=== PATIENT | female | born 1930 | race African-American/Black ===

== ENCOUNTER 2018-07-20 06:37 | Emergency (ER) | payer OTHER ==
[~2018-07-20] VITALS: Ht 172.7 cm; Wt 58.0 kg
[~2018-07-20 06:37] MED LIST: AMLO5TAB4 PO; ASCO-339 PO; BRIM15DR2 EACHEYE; CETI10CA8 PO; CITRACAL + D3 PO; CLOTRIMAZOLE TOP; DOCU250C69 PO; FURO40TA5 PO; GLYB5TAB7 PO; LATA2.5D2 EACHEYE; LEVO50TA8 PO; METF-414 PO; metolazone PO
[2018-07-20 09:09] VITALS: BP 141/57
== END 2018-07-20 09:10 | disposition home or self-care (01) ==
LOC: ER 06:37
DX: B02.9 Zoster without complications (principal); I10 Essential (primary) hypertension
CPT/HCPCS: 99283

== ENCOUNTER 2020-05-21 15:05 | Inpatient (IN) | payer OTHER ==
[~2020-05-21] VITALS: Ht 172.7 cm; Wt 66.2 kg
[~2020-05-21 15:05] MED LIST changes: +LATA2.5D14 EACHEYE; -LATA2.5D2 EACHEYE
[2020-05-21 15:23] LABS: BASOPHILS % 1.3 % (0.0-2.0); EOSINOPHILS % 1.1 % (0.0-5.0); HEMATOCRIT. 35.1 % (36.0-48.0); HEMOGLOBIN. 11.4 g/dL (12.0-16.0); MEAN CORPUSCULAR HEMOGLOBIN 29.8 pg (28.0-32.0); MEAN CORPUSCULAR VOLUME 91.5 fL (81.0-99.0); MEAN PLATELET VOLUME 8.6 fl (7.4-10.4); MONOCYTES % 10.2 % (2.0-8.0); NEUTROPHILS % 66.4 % (40.0-76.0); PLATELET 226 x1000/uL (130-400); RED BLOOD CELL COUNT 3.84 mill/uL (4.2-5.4); RED CELL DISTRIBUTION WIDTH 14.5 % (11.6-14.6)
[2020-05-21 15:30] LABS: CHLORIDE 108 mEq/L (98-107)
[2020-05-21 15:32] LABS: INR 1.1; PROTHROMBIN TIME 11.6 sec (9.6-11.0)
[2020-05-21 15:35] LABS: ETHANOL BLOOD < 10 mg/dL
[2020-05-21 15:38] LABS: LDL CHOLESTEROL 88 mg/dL (5-100)
[2020-05-21 15:39] LABS: CREATINE KINASE 55 IU/L (26-192)
[2020-05-21] MEDS ORDERED: ALTEPLASE IV STA (15:52)
[2020-05-21] MEDS ORDERED: ALTEPLASE 100MG/VIAL IV ONE (16:15)
[2020-05-21] MEDS ORDERED: CONTAINER EMPTY IV ONE (16:20)
[2020-05-21] MEDS ORDERED: ALTEPLASE IV ONE (16:20)
[2020-05-21] MEDS ORDERED: *NO ASPIRIN X 24 HOURS XX SCH ×2 (16:30)
[2020-05-21 17:52] LABS: CLARITY URINE CLEAR (CLEAR); COLOR URINE YELLOW (YELLOW); KETONES URINE NEGATIVE (NEGATIVE); LEUKOCYTE ESTERASE URINE TRACE (NEGATIVE); NITRITE URINE NEGATIVE (NEGATIVE); OCCULT BLOOD URINE TRACE (NEGATIVE); PH URINE 6.5 (4.5-8.0); PROTEIN URINE NEGATIVE (NEGATIVE); SPECIFIC GRAVITY URINE 1.034 (1.005-1.030)
[2020-05-21 18:03] LABS: *COCAINE SCREEN URINE NEGATIVE (NEGATIVE); METHADONE URINE SCREEN NEGATIVE (NEGATIVE); OPIATES URINE SCREEN NEGATIVE (NEGATIVE)
[2020-05-21 18:04] LABS: *AMPHETAMINES SCREEN URINE NEGATIVE (NEGATIVE); *BARBITURATES SCREEN URINE NEGATIVE (NEGATIVE); *BENZODIAZEPINES SCREEN URINE NEGATIVE (NEGATIVE); CANNABINOID URINE SCREEN NEGATIVE (NEGATIVE); PHENCYCLIDINE URINE SCREEN NEGATIVE (NEGATIVE)
[2020-05-22] MEDS: LATANOPROST 0.005% OPHTH DROPS 2.5ML EACHEYE SCH (22:32)
[2020-05-23] VITALS (12 sets, daily range): BP systolic 128–177; BP diastolic 61–87
[2020-05-23] MEDS: FUROSEMIDE 40MG TABLET PO SCH (08:28)
[2020-05-23] MEDS: DOCUSATE SODIUM 250MG CAPSULE PO SCH (08:28)
[2020-05-23] MEDS: LEVOTHYROXINE SODIUM 50MCG TABLET PO SCH (08:28)
[2020-05-23] MEDS: AMLODIPINE 5MG TABLET PO SCH (08:29)
[2020-05-23 17:17] LABS: BASOPHILS % 0.6 % (0.0-2.0); EOSINOPHILS % 1.7 % (0.0-5.0); HEMATOCRIT. 34.8 % (36.0-48.0); HEMOGLOBIN. 11.4 g/dL (12.0-16.0); LYMPHOCYTES % 14.3 % (20.0-50.0); MEAN CORPUSCULAR HEMOGLOBIN 29.9 pg (28.0-32.0); MEAN CORPUSCULAR VOLUME 91.4 fL (81.0-99.0); MONOCYTES % 12.8 % (2.0-8.0); NEUTROPHILS % 70.6 % (40.0-76.0); PLATELET 217 x1000/uL (130-400); RED BLOOD CELL COUNT 3.81 mill/uL (4.2-5.4); RED CELL DISTRIBUTION WIDTH 14.5 % (11.6-14.6)
[2020-05-23 17:25] LABS: CHLORIDE 103 mEq/L (98-107)
[2020-05-23] MEDS: LATANOPROST 0.005% OPHTH DROPS 2.5ML EACHEYE SCH (21:46)
[2020-05-23] MEDS: ATORVASTATIN CALCIUM 10MG TABLET PO SCH (21:46)
[2020-05-24] VITALS (12 sets, daily range): BP systolic 108–143; BP diastolic 57–80
[2020-05-24 06:31] LABS: BASOPHILS % 0.9 % (0.0-2.0); EOSINOPHILS % 3.2 % (0.0-5.0); HEMATOCRIT. 33.5 % (36.0-48.0); HEMOGLOBIN. 11.2 g/dL (12.0-16.0); LYMPHOCYTES % 15.2 % (20.0-50.0); MEAN CORPUSCULAR HEMOGLOBIN 30.6 pg (28.0-32.0); MEAN CORPUSCULAR VOLUME 91.3 fL (81.0-99.0); MEAN PLATELET VOLUME 9.1 fl (7.4-10.4); MONOCYTES % 7.8 % (2.0-8.0); NEUTROPHILS % 72.9 % (40.0-76.0); PLATELET 222 x1000/uL (130-400); RED BLOOD CELL COUNT 3.67 mill/uL (4.2-5.4); RED CELL DISTRIBUTION WIDTH 14.4 % (11.6-14.6)
[2020-05-24 06:42] LABS: CHLORIDE 105 mEq/L (98-107)
[2020-05-24] MEDS ORDERED: DEXTROSE 50% WATER 50ML SYRINGE IV PRN ×2 (08:00→22:00)
[2020-05-24] MEDS: FUROSEMIDE 40MG TABLET PO SCH (09:03)
[2020-05-24] MEDS: DOCUSATE SODIUM 250MG CAPSULE PO SCH (09:03)
[2020-05-24] MEDS: LEVOTHYROXINE SODIUM 50MCG TABLET PO SCH (09:03)
[2020-05-24] MEDS: CLOPIDOGREL 75MG TABLET PO SCH (09:03)
[2020-05-24] MEDS: AMLODIPINE 5MG TABLET PO SCH (09:03)
[2020-05-24] MEDS: BLOOD SUGAR DIAGNOSTIC STRIP TEST SCH ×2 (09:04→21:09)
[2020-05-24] MEDS ORDERED: NA PHOS,M-B/NA PHOS,DI-BA ENEMA 118ML PR NR (11:15)
[2020-05-24] MEDS ORDERED: ASPI-1497 MT ×2 (14:55)
[2020-05-24] MEDS ORDERED: ATOR10TA MT (14:55)
[2020-05-24] MEDS ORDERED: CLOP-31 MT (14:55)
[2020-05-24] MEDS ORDERED: LACTULOSE 20G/30ML UDC PO NR (15:00)
[2020-05-24] MEDS: POLYETHYLENE GLYCOL 3350 (17GM) 1 DOSE PACK PO SCH (15:46)
[2020-05-24] MEDS ORDERED: SENNOSIDES/DOCUSATE SOD 8.6/50MG TABLET PO SCH (21:00)
[2020-05-24] MEDS: ATORVASTATIN CALCIUM 10MG TABLET PO SCH (21:09)
[2020-05-24] MEDS: LATANOPROST 0.005% OPHTH DROPS 2.5ML EACHEYE SCH (21:09)
[2020-05-24] MEDS ORDERED: MORPHINE SULFATE 2 MG/ML CPJ (NOT FOR IM USE) IV SCH (22:00)
[2020-05-24] MEDS ORDERED: ACETAMINOPHEN 650MG/20.3ML UDC PO PRN (22:00)
[2020-05-24] MEDS: INSULIN LISPRO 100 UNITS/ML SUBCUT SCH (22:26)
[2020-05-25] VITALS: BP 135/69
[2020-05-25 02:00] VITALS: BP 149/70
[2020-05-25 04:00] VITALS: BP 141/77
[2020-05-25] MEDS ORDERED: BLOOD SUGAR DIAGNOSTIC STRIP TEST SCH (07:30)
[2020-05-25 08:00] VITALS: BP 135/66
[2020-05-25] MEDS: INSULIN LISPRO 100 UNITS/ML SUBCUT SCH (08:00)
[2020-05-25] MEDS: POLYETHYLENE GLYCOL 3350 (17GM) 1 DOSE PACK PO SCH (08:16)
[2020-05-25] MEDS: DOCUSATE SODIUM 250MG CAPSULE PO SCH (08:16)
[2020-05-25] MEDS: LEVOTHYROXINE SODIUM 50MCG TABLET PO SCH (08:16)
[2020-05-25] MEDS: FUROSEMIDE 40MG TABLET PO SCH (08:17)
[2020-05-25] MEDS: AMLODIPINE 5MG TABLET PO SCH (08:17)
[2020-05-25] MEDS: CLOPIDOGREL 75MG TABLET PO SCH (08:17)
[2020-05-25 09:46] VITALS: BP 140/56
[2020-05-25 10:00] VITALS: BP 141/70
== END 2020-05-25 10:45 | disposition home or self-care (01) | DRG 61 ==
LOC: ER 15:05 → MICUSO 17:24 → ENRESERV 05-23 00:16 → 5EST 05-23 01:29
PROVIDERS: ADMIT Internal Medicine; ATTEND Internal Medicine
DX: I63.9 Cerebral infarction, unspecified (principal); I50.33 Acute on chronic diastolic (congestive) heart failure; M19.90 Unspecified osteoarthritis, unspecified site; D64.9 Anemia, unspecified; E11.9 Type 2 diabetes mellitus without complications; E88.09 Other disorders of plasma-protein metabolism, not elsewhere classified; G51.0 Bell's palsy; I11.0 Hypertensive heart disease with heart failure; I25.10 Atherosclerotic heart disease of native coronary artery without angina pectoris; I25.2 Old myocardial infarction; K57.30 Diverticulosis of large intestine without perforation or abscess without bleeding; I44.0 Atrioventricular block, first degree; K43.9 Ventral hernia without obstruction or gangrene; Z96.649 Presence of unspecified artificial hip joint; K44.9 Diaphragmatic hernia without obstruction or gangrene; K56.41 Fecal impaction; Z79.82 Long term (current) use of aspirin; Z79.84 Long term (current) use of oral hypoglycemic drugs; Z79.899 Other long term (current) drug therapy; Z87.19 Personal history of other diseases of the digestive system; Z95.0 Presence of cardiac pacemaker; H91.90 Unspecified hearing loss, unspecified ear
CPT/HCPCS: 36415; 70496; 70498; 71045; 74176; 80048; 80053; 80305; 80320; 81003; 82270; 82550; 82962; 83036; 83605; 83721; 83880; 84484; 85025; 92610; 93005; 93306; 93880; 93970; 97162; 97166; 97530; 97535; 99285; J1815; J2997; J7060; G0480